=== PATIENT | female | born 1960 | race Caucasian/White ===

== ENCOUNTER 2017-07-30 13:22 | Emergency (ER) | payer OTHER ==
[2017-07-30] MEDS ORDERED: ONDANSETRON 4 MG/2 ML VIAL IVP ONE ×2 (16:34→18:32)
[2017-07-30] MEDS ORDERED: NS 1,000 ML IV ONE ×3 (16:34→20:40)
--- NOTE | 2017-07-30 16:34 | EDPHY ---
H & P Stated Complaint: Abd pain x 4 days;sent here from PCPs office for eval - Personal History Current Tetanus Diphtheria and Acellular Pertussis (TDAP): Yes - Medical/Surgical History Hx Asthma: No Hx Chronic Respiratory Disease: No Hx Diabetes: Yes Hx Cardiac Disease: No Hx Renal Disease: No Hx Cirrhosis: No Hx Alcoholism: No Hx HIV/AIDS: No Hx Splenectomy or Spleen Trauma: No Other PMH: stroke 2013, HTN, anxiety, cholecystectomy, hysterectomy, kidney upj obstruction, MS, r hamstring tear was w/c bound, r foot fx - Social History Smoking Status: Current every day smoker Time Seen by Provider: 07/30/17 16:16 HPI/ROS: CHIEF COMPLAINT: Abdominal pain x3 days HISTORY OF PRESENT ILLNESS: 57-year-old female history of multiple abdominal, renal surgeries, complaining of 3 days of progressive abdominal pain, saw her PCP yesterday recommend she go to the ER yesterday . She did not seek medical attention yesterday and came to the ER today noting continued abdominal pain which is progressive, nausea with no vomiting. She is able to pass a small amount of flatus. No diarrhea. No trauma. The abdominal pain is located primarily on the right side. She has history of cholecystectomy. Last oral intake was last night currently no appetite. PRIMARY CARE PROVIDER: Greg . Urology Dr. Sal Marquez REVIEW OF SYSTEMS: A ten point review of systems was performed and is negative with the exception of the items mentioned in the HPI PAST MEDICAL & SURGICAL HISTORY: Multiple renal and abdominal surgeries. Remote history of cholecystectomy. SOCIAL HISTORY: nonsmoker PHYSICAL EXAM (Prior to examination, patient consented to physical exam, hands were washed and my usual and customary physical exam procedures followed) 1) GENERAL: obese, alert and oriented. Appears uncomfortable . 2) HEAD: Normocephalic, atraumatic 3) HEENT: Pupils equal, round, reactive to light bilaterally. Sclera anicteric. Nasopharynx, oropharynx, clear, no lesions. Dry mucous membranes 4) NECK: Full range of motion, no meningeal signs. 5) LUNGS: Clear auscultation bilaterally, no wheezes, no rhonchi, no retractions. 6) HEART: Regular rate and rhythm, no murmur, no heave, no gallop. 7) ABDOMEN: No guarding, tender to palpation right lower quadrant with positive McBurney's point pain, negative Brennan's, negative Rovsing's, negative peritoneal sign, 8) MUSCULOSKELETAL: Moving all extremities, no focal areas of tenderness, no obvious trauma. No peripheral edema or discoloration. 9) BACK: No CVA tenderness, no midline vertebral tenderness, no fluctuance, no step-off, no obvious trauma, no visual or palpable abnormality. 10) SKIN: No rash, no petechiae. [11) Psychiatric: Patient is oriented X 3, there is no agitation. DIFFERENTIAL DIAGNOSIS: My differential diagnosis includes, but is not limited to, acute appendicitis, acute cholecystitis, bowel obstruction, acute pancreatitis, gastritis and urinary tract infection. The patient understands that this diagnosis is provisional and can never be 100% accurate. This is a partial list of diagnoses considered. These considerations are based on history , physical exam, past history and reassessment. (Humberto Trujillo) Constitutional: Initial Vital Signs Temperature (C) 36.8 C 07/30/17 13:25 Heart Rate 61 07/30/17 13:25 Respiratory Rate 18 07/30/17 13:25 Blood Pressure 115/77 07/30/17 13:25 O2 Sat (%) 94 07/30/17 13:25 O2 Delivery Mode Room Air Allergies/Adverse Reactions: iodine Allergy (Severe, Verified 07/30/17 13:38) Anaphylaxis ciprofloxacin [From Cipro] Allergy (Intermediate, Verified 07/30/17 13:38) Hives ciprofloxacin HCl [From Cipro] Allergy (Intermediate, Verified 07/30/17 13:38) Hives Sulfa (Sulfonamide Antibiotics) [Sulfa(Sulfonamide Antibiotics)] Allergy ( Intermediate, Verified 07/30/17 13:38) Hives Home Medications: Medication Instructions Recorded Acetaminophen [Tylenol ES 500 mg 1,000 mg PO TID PRN 09/14/13 (*)] Diazepam [Valium 5 MG (*)] 5 - 10 mg PO DAILY PRN 09/14/13 Albuterol [Proventil] 17 gm IH Q4 02/12/16 Aspirin [Aspirin 81mg (*)] 81 mg PO DAILY 02/12/16 Losartan Potassium [Cozaar 50 mg 50 mg PO DAILY 02/12/16 (*)] Medical Decision Making - Diagnostics Imaging: Discussed imaging studies w/ health education assistant Radiologist - Diagnostics Imaging Results: Imaging Impressions Abdomen/Pelvis CT 07/30/17 16:35 Impression: 1. No acute findings in the abdomen or pelvis. 2. Benign indeterminate right renal structures, unchanged since 2013. 3. Diverticulosis without evidence of diverticulitis. 4. Additional findings as above. Findings discussed with Kaushal Truijllo PA-C on July 30, 2017 at 1838 hours. Attention: This CT examination is specifically designed to evaluate patients who are clinically suspected of having acute obstructive uropathy. This examination does not use radiographic contrast, and as such, provides only a limited evaluation of the abdomen, pelvis and retroperitoneum. If there is further clinical suspicion for pathological conditions other than obstructive uropathy, a complete CT evaluation of the abdomen and pelvis utilizing intravenous and oral contrast should be considered. ED Course/Re-evaluation: Care of patient under supervision of [secondary] supervising physician Dr Gautam. 6:39 p.m.: CT report by radiologist shows normal appendix, normal CT abdomen pelvis Serial evaluations performed on patient. Most recent evaluation at 8:45 p.m. she sitting upright, smiling, laughing, interactive, states that her lower abdominal pain continues mildly however is currently controlled. Still awaiting urine sample. 9:40 p.m.: Re-evaluation, urinalysis is negative exception of trace bacteria. Abdomen remained soft she is eating. I do not think that hospitalization or further diagnostic studies are indicated. Doubt acute surgical abdominal pathology. She would like to be discharged. Recommend close follow-up with her primary care provider and given GI follow-up as well. (Humberto Trujillo) I did not see this patient while she was in the emergency department. However her care was discussed with the PA while the patient was in the department. I agree with treatment plan and management (Alejandro Gautam) - Data Points Laboratory Results: Laboratory Results 07/30/17 16:40 07/30/17 16:40 07/30/17 07/30/17 07/30/17 21:11 16:45 16:40 WBC RBC Hgb POC Hgb 15.6 gm/dL gm/dL (12.6-16.3) Hct POC Hct 46 % % (38-47) MCV MCH MCHC RDW Plt Count MPV Neut % (Auto) Lymph % (Auto) [place] % (Auto) Eos % (Auto) Baso % (Auto) Nucleat RBC Rel Count Absolute Neuts (auto) Absolute Lymphs (auto) Absolute Monos (auto) Absolute Eos (auto) Absolute Basos (auto) Absolute Nucleated RBC Immature Gran % Immature Gran # POC Sodium 143 mEq/L mEq/L (134-144) Sodium 141 mEq/L mEq/L (134-144) POC Potassium 3.9 mEq/L mEq/L (3.3-5.0) Potassium 4.4 mEq/L mEq/L (3.5-5.2) POC Chloride 107 mEq/L mEq/L (97-110) Chloride 106 mEq/L mEq/L (97-110) Carbon Dioxide 21 mEq/l L mEq/l (22-31) Anion Gap 14 mEq/L mEq/L (8-16) POC BUN 14 mg/dL mg/dL (7-23) BUN 13 mg/dL mg/dL (7-23) Creatinine 0.7 mg/dL mg/dL (0.6-1.0) POC Creatinine 0.7 mg/dL mg/dL (0.6-1.0) Estimated GFR > 60 Glucose 98 mg/dL mg/dL (70-100) POC Glucose 98 mg/dL mg/dL (70-100) Calcium 10.1 mg/dL mg/dL (8.5-10.4) Total Bilirubin 0.7 mg/dL mg/dL (0.1-1.4) Conjugated Bilirubin 0.4 mg/dL mg/dL (0.0-0.5) Unconjugated Bilirubin 0.3 mg/dL mg/dL (0.0-1.1) AST 28 IU/L IU/L (14-46) ALT 29 IU/L IU/L (9-52) Alkaline Phosphatase 112 IU/L IU/L (38-126) Total Protein 7.8 g/dL g/dL (6.3-8.2) Albumin 4.6 g/dL g/dL (3.5-5.0) Lipase 45 IU/L IU/L (23-300) Urine Color YELLOW Urine Appearance CLEAR Urine pH 5.0 (5.0-7.5) Ur Specific [place] 1.023 (1.002-1.030) Urine Protein NEGATIVE (NEGATIVE) Urine Ketones NEGATIVE (NEGATIVE) Urine Blood 1+ H (NEGATIVE) Urine Nitrate NEGATIVE (NEGATIVE) Urine Bilirubin NEGATIVE (NEGATIVE) Urine Urobilinogen NEGATIVE EU EU (0.2-1.0) Ur Leukocyte Esterase NEGATIVE (NEGATIVE) Urine RBC 5-10 /hpf H /hpf (0-3) Urine WBC 1-3 /hpf /hpf (0-3) Ur Epithelial Cells TRACE /lpf /lpf (NONE-1+) Urine Bacteria TRACE /hpf H /hpf (NONE SEEN) Urine Mucus TRACE /lpf /lpf (NONE-1+) Urine Glucose NEGATIVE (NEGATIVE) 07/30/17 16:40 WBC 9.08 10^3/uL 10^3/uL (3.80-9.50) RBC 5.15 10^6/uL 10^6/uL (4.18-5.33) Hgb 15.7 g/dL g/dL (12.6-16.3) POC Hgb Hct 45.1 % % (38.0-47.0) POC Hct MCV 87.6 fL fL (81.5-99.8) MCH 30.5 pg pg (27.9-34.1) MCHC 34.8 g/dL g/dL (32.4-36.7) RDW 13.3 % % (11.5-15.2) Plt Count 278 10^3/uL 10^3/uL (150-400) MPV 10.7 fL fL (8.7-11.7) Neut % (Auto) 45.9 % % (39.3-74.2) Lymph % (Auto) 46.1 % H % (15.0-45.0) [place] % (Auto) 5.6 % % (4.5-13.0) Eos % (Auto) 1.4 % % (0.6-7.6) Baso % (Auto) 0.8 % % (0.3-1.7) Nucleat RBC Rel Count 0.0 % % (0.0-0.2) Absolute Neuts (auto) 4.16 10^3/uL 10^3/uL (1.70-6.50) Absolute Lymphs (auto) 4.19 10^3/uL H 10^3/uL (1.00-3.00) Absolute Monos (auto) 0.51 10^3/uL 10^3/uL (0.30-0.80) Absolute Eos (auto) 0.13 10^3/uL 10^3/uL (0.03-0.40) Absolute Basos (auto) 0.07 10^3/uL 10^3/uL (0.02-0.10) Absolute Nucleated RBC 0.00 10^3/uL 10^3/uL (0-0.01) Immature Gran % 0.2 % % (0.0-1.1) Immature Gran # 0.02 10^3/uL 10^3/uL (0.00-0.10) POC Sodium Sodium POC Potassium Potassium POC Chloride Chloride Carbon Dioxide Anion Gap POC BUN BUN Creatinine POC Creatinine Estimated GFR Glucose POC Glucose Calcium Total Bilirubin Conjugated Bilirubin Unconjugated Bilirubin AST ALT Alkaline Phosphatase Total Protein Albumin Lipase Urine Color Urine Appearance Urine pH Ur Specific [place] Urine Protein Urine Ketones Urine Blood Urine Nitrate Urine Bilirubin Urine Urobilinogen Ur Leukocyte Esterase Urine RBC Urine WBC Ur Epithelial Cells Urine Bacteria Urine Mucus Urine Glucose Medications Given: Discontinued Medications Sodium Chloride (Ns) 1,000 mls @ 0 mls/hr IV ONCE ONE PRN Reason: Wide Open Stop: 07/30/17 16:35 Last Admin: 07/30/17 17:09 Dose: 1,000 mls Sodium Chloride (Ns) 1,000 mls @ 0 mls/hr IV ONCE ONE PRN Reason: Wide Open Stop: 07/30/17 20:41 Last Admin: 07/30/17 20:41 Dose: 1,000 mls Sodium Chloride (Ns) 1,000 mls @ 0 mls/hr IV ONCE ONE PRN Reason: Wide Open Stop: 07/30/17 20:41 Last Admin: 07/30/17 20:41 Dose: 1,000 mls Morphine Sulfate (Morphine) 4 mg IVP EDNOW ONE Stop: 07/30/17 16:35 Last Admin: 07/30/17 17:07 Dose: 4 mg Morphine Sulfate (Morphine) 4 mg IVP EDNOW ONE Stop: 07/30/17 18:33 Last Admin: 07/30/17 18:38 Dose: 4 mg Ondansetron HCl (Zofran) 4 mg IVP EDNOW ONE Stop: 07/30/17 16:35 Last Admin: 07/30/17 17:07 Dose: 4 mg Ondansetron HCl (Zofran) 4 mg IVP EDNOW ONE Stop: 07/30/17 18:33 Last Admin: 07/30/17 18:35 Dose: 4 mg Point of Care Test Results: 07/30/17 16:45 POC Sodium 143 POC Potassium 3.9 POC Chloride 107 POC BUN 14 POC Creatinine 0.7 POC Glucose 98 Departure - Departure Disposition: Home, Routine, Self-Care Clinical Impression: Abdominal pain Qualifiers: Abdominal location: right lower quadrant Qualified Code(s): R10.31 - Right lower quadrant pain Condition: Good Instructions: Acute Abdominal Pain (ED) Additional Instructions: Seek immediate medical attention if you develop new or worsening symptoms, if you develop fevers, chills, inability to tolerate oral intake or any other symptoms that concerns you. Referrals: Rolando Allen MD [Primary Care Provider] - 1 day without fail Armani Bush MD [[facility] [place]] - 2-3 days, call for appt.
[2017-07-30 16:57] LABS: % IMMATURE GRANULYOCYTES 0.2 % (0.0-1.1); ABSOLUTE IMMATURE GRANULOCYTES 0.02 10^3/uL (0.00-0.10); ADD DIFF? NO; ADD MORPH? NO; ADD SCAN? NO; ATYPICAL LYMPHOCYTE FLAG 10 (0-99); FRAGMENT RBC FLAG 0 (0-99); HEMATOCRIT 45.1 % (38.0-47.0); HEMOGLOBIN 15.7 g/dL (12.6-16.3); LEFT SHIFT FLG 0 (0-99); LIPEMIA HEMOLYSIS FLAG 90 (0-99); MEAN CELL HEMOGLOBIN 30.5 pg (27.9-34.1); MEAN CELL HEMOGLOBIN CONCENTR. 34.8 g/dL (32.4-36.7); MEAN CELL VOLUME 87.6 fL (81.5-99.8); MEAN PLATELET VOLUME 10.7 fL (8.7-11.7); PLATELET CLUMPS FLAG 10 (0-99); PLATELET COUNT 278 10^3/uL (150-400); RED BLOOD CELL COUNT 5.15 10^6/uL (4.18-5.33); RED CELL DISTRIBUTION WIDTH 13.3 % (11.5-15.2)
[2017-07-30 16:59] LABS: ALANINE AMINOTRANSFERASE 29 IU/L (9-52); ALBUMIN 4.6 g/dL (3.5-5.0); ALKALINE PHOSPHATASE 112 IU/L (38-126); ANION GAP 14 mEq/L (8-16); ASPARTATE AMINOTRANSFERASE 28 IU/L (14-46); BILIRUBIN,TOTAL 0.7 mg/dL (0.1-1.4); BILIRUBIN-CONJUGATED 0.4 mg/dL (0.0-0.5); BILIRUBIN-UNCONJUGATED 0.3 mg/dL (0.0-1.1); CALCIUM 10.1 mg/dL (8.5-10.4); CARBON DIOXIDE 21 mEq/l (22-31); CHLORIDE 106 mEq/L (97-110); CREATININE 0.7 mg/dL (0.6-1.0); GLOMERULAR FILTRATION RATE > 60; GLUCOSE 98 mg/dL (70-100); POTASSIUM 4.4 mEq/L (3.5-5.2); SODIUM 141 mEq/L (134-144); TOTAL PROTEIN 7.8 g/dL (6.3-8.2)
[2017-07-30] MEDS ORDERED: IOPAMIDOL (ISOVUE-300) 100 ML BTL ONE (17:33)
[2017-07-30 19:30] VITALS: RESP 16
[2017-07-30 21:28] LABS: COLOR YELLOW; LEUKOCYTE ESTERASE,URINE NEGATIVE (NEGATIVE); NITRITE,URINE NEGATIVE (NEGATIVE)
[2017-07-30 21:33] LABS: BACTERIA TRACE /hpf (NONE SEEN); MUCUS TRACE /lpf (NONE-1+)
[2017-07-30 22:04] VITALS: BP 119/62; PULSE 57; TEMP 97.7; O2SAT 90
== END 2017-07-30 22:02 | disposition home or self-care (01) ==
DX: R10.31 Right lower quadrant pain (principal); F17.200 Nicotine dependence, unspecified, uncomplicated; I10 Essential (primary) hypertension; E11.9 Type 2 diabetes mellitus without complications; Z79.82 Long term (current) use of aspirin; Z90.49 Acquired absence of other specified parts of digestive tract; Z90.710 Acquired absence of both cervix and uterus
CPT/HCPCS: 82947-QW; 96374; J2405; Q9967

== ENCOUNTER 2018-04-20 09:47 | Observation (INO) | payer OTHER ==
--- NOTE | 2018-04-20 10:00 | EDPHY ---
H & P Stated Complaint: diabetic /prob regulating blood sugar las month/changing dosages r forearm Time Seen by Provider: 04/20/18 09:58 - Personal History Current Tetanus Diphtheria and Acellular Pertussis (TDAP): Yes - Medical/Surgical History Hx Asthma: No Hx Chronic Respiratory Disease: No Hx Diabetes: Yes Hx Cardiac Disease: No Hx Renal Disease: No Hx Cirrhosis: No Hx Alcoholism: No Hx HIV/AIDS: No Hx Splenectomy or Spleen Trauma: No Other PMH: stroke 2013, HTN, anxiety, cholecystectomy, hysterectomy, kidney upj obstruction, MS, r hamstring tear was w/c bound, r foot fx - Social History Smoking Status: Former smoker Constitutional: Initial Vital Signs Temperature (C) 36.5 C 04/20/18 09:52 Heart Rate 63 04/20/18 09:52 Respiratory Rate 18 04/20/18 09:52 Blood Pressure 140/75 H 04/20/18 09:52 O2 Sat (%) 92 04/20/18 09:52 O2 Delivery Mode Room Air Allergies/Adverse Reactions: iodine Allergy (Severe, Verified 04/20/18 09:51) Anaphylaxis ciprofloxacin [From Cipro] Allergy (Intermediate, Verified 04/20/18 09:51) Hives ciprofloxacin HCl [From Cipro] Allergy (Intermediate, Verified 04/20/18 09:51) Hives Sulfa (Sulfonamide Antibiotics) [Sulfa(Sulfonamide Antibiotics)] Allergy ( Intermediate, Verified 04/20/18 09:51) Hives Home Medications: Medication Instructions Recorded Acetaminophen [Tylenol ES 500 mg 1,000 mg PO TID PRN 09/14/13 (*)] Diazepam [Valium 5 MG (*)] 5 - 10 mg PO DAILY PRN 09/14/13 Aspirin [Aspirin 81mg (*)] 81 mg PO DAILY 02/12/16 Losartan Potassium [Cozaar 50 mg 50 mg PO DAILY 02/12/16 (*)] Albuterol [Proventil Inhaler HFA 1 - 2 puffs IH DAILY PRN 04/20/18 (*)] Atorvastatin Calcium [Lipitor 20 20 mg PO DAILY 04/20/18 mg (*)] Humalog 04/20/18 Lantus 04/20/18 Metformin HCl 04/20/18 Medical Decision Making - Diagnostics Imaging: Discussed imaging studies w/ inbound call center representative Radiologist, I viewed and interpreted images myself ED Course/Re-evaluation: CHIEF COMPLAINT: Right hand numbness HISTORY OF PRESENT ILLNESS: The patient is a 58 y/o female with a history of a stroke and diabetes complaining of right hand numbness and a high blood sugar. A couple of weeks ago she started to have muscle cramps in the back of her legs and a high blood sugar of 630; her BGL was normal prior to this. Her PCP started the patient on Metformin, which causes gastrointestinal problems. However, her BGL was still ranging between 300-600. Last Friday, 3 days ago, she had a blood sugar in the 600's again so she changed over to long and fast acting insulin. Today she woke up at 07:20, 3 hours ago, and had a BGL of 440 associated with right-hand numbness. This numbness does not feel like pins and needles. She ate breakfast and took 25 units of Lantus. At 09:30, 40 minutes ago, her BGL was 532. Due to the high blood sugar and numbness she decided to present to the emergency department. She is currently not feeling well and is feeling more stressed and anxious.Denies urinary symptoms, sore throat, cough or ear ache, headache, shortness of breath, abdominal pain. REVIEW OF SYSTEMS: A 10 point review of systems was performed and is negative with the exception of the elements mentioned in the history of present illness. PHYSICAL EXAM: HR, BP, O2 Sat, RR. Temp noted General Appearance: Obese, alert, well hydrated, appropriate, and non-toxic appearing. Head: Atraumatic without scalp tenderness or obvious injury Eyes: Pupils equal, round, reactive to light and accommodation, EOMI, no trauma , no injection. Ears: Clear bilaterally, no perforation, normal landmarks Nose: Atraumatic, no rhinorrhea, clear. Throat: There is no erythema or exudates, no lesions, normal tonsils, mucus membranes moist. Neck: Supple, nontender, no lymphadenopathy. Respiratory: No retractions, no distress, no wheezes, and no accessory muscle use. Lungs are clear to auscultation bilaterally. Cardiovascular: Regular rate and rhythm, no murmurs, rubs, or gallops. Bilateral carotid, radial, dorsalis pedis, and posterior tibial pulses intact. Good capillary refill all extremities. Gastrointestinal: Abdomen is soft, nontender, non-distended, no masses, no rebound, no guarding, no peritoneal signs. Musculoskeletal: Normal active ROM of all extremities, atraumatic. Neurological: Alert, appropriate, and interactive. The patient has normal DTRs and non-focal cranial nerves, motor, sensory, and cerebellar exam. Skin: No rashes, good turgor, no nodules on palpation. Past medical history: Stroke (2012), diabetes (since 2016), hypertension, anxiety, , kidney upj obstruction, MS, right hamstring tear (was wheelchair bound), right foot fracture Past surgical history: Cholecystectomy, hysterectomy Family history: Denies Social history: Lives in [place], at bedside, employed DIAGNOSTICS/PROCEDURES/CRITICAL CARE TIME: Brain MRI: No acute findings DIFFERENTIAL DIAGNOSIS: The differential diagnosis for the patient's neurologic deficits included but was not limited to diabetic ketoacidosis, hyperglycemia, hyperosmolarity, peripheral causes, central causes including CVA, TIA, electrolyte abnormalities and dehydration, cardiogenic causes, atypical causes like migraine syndrome. MEDICAL DECISION MAKING: The patient is a 58 y/o female with a history of a stroke and diabetes presenting with right hand numbness and a high blood sugar ranging between 300- 600. Her physical exam is normal. Labs and Brain MRI ordered; 2L IV NS given. 1050: I reviewed patient's labs which reveal hyperglycemia and hyperosmolarity; she is not in DKA. 1120: Consulted with hospitalist service, Dr. Miguel accepts admission of this patient. 1136: Patient is feeling anxious for MRI, 0.5mg IV Ativan administered. 1221: Patient is still anxious, additional 1 mg IV Ativan administered. 1242: Repeat glucose ordered; patient is currently in MRI. 1309: Patient's repeat blood glucose level has decreased to 253 1310: Reassessed patient and discussed laboratory and imaging studies. She is feeling better and is comfortable with plan for admission. 1338: I spoke with Dr. Ramires, radiologist, who reports there are no acute findings on patient's brain MRI. Patient has already been transferred to the floor. - Data Points Laboratory Results: Laboratory Results 04/20/18 10:20 04/20/18 10:20 04/20/18 04/20/18 04/20/18 13:08 13:00 10:28 WBC RBC Hgb POC Hgb 12.9 gm/dL gm/dL 15.3 gm/dL gm/dL (12.6-16.3) (12.6-16.3) Hct POC Hct 38 % % 45 % % (38-47) (38-47) MCV MCH MCHC RDW Plt Count MPV Neut % (Auto) Lymph % (Auto) [place] % (Auto) Eos % (Auto) Baso % (Auto) Nucleat RBC Rel Count Absolute Neuts (auto) Absolute Lymphs (auto) Absolute Monos (auto) Absolute Eos (auto) Absolute Basos (auto) Absolute Nucleated RBC Immature Gran % Immature Gran # Puncture Site VBG pH VBG HCO3 VBG Total CO2 VBG O2 Saturation VBG Base Excess Mixed VBG pCO2 Mixed VBG pO2 POC Sodium 143 mEq/L mEq/L 139 mEq/L mEq/L (135-145) (135-145) Sodium POC Potassium 3.7 mEq/L mEq/L 4.1 mEq/L mEq/L (3.3-5.0) (3.3-5.0) Potassium POC Chloride 107 mEq/L mEq/L 103 mEq/L mEq/L (97-110) (97-110) Chloride Carbon Dioxide Anion Gap POC BUN 12 mg/dL mg/dL 16 mg/dL mg/dL (7-23) (7-23) BUN Creatinine POC Creatinine 0.5 mg/dL L mg/dL 0.6 mg/dL mg/dL (0.6-1.0) (0.6-1.0) Estimated GFR Glucose POC Glucose 253 mg/dL H mg/dL 426 mg/dL H mg/dL (70-100) (70-100) Serum Osmolality Calcium Beta-Hydroxybutyrate Urine Color YELLOW Urine Appearance CLEAR Urine pH 5.0 (5.0-7.5) Ur Specific [place] 1.030 (1.002-1.030) Urine Protein NEGATIVE (NEGATIVE) Urine Ketones NEGATIVE (NEGATIVE) Urine Blood NEGATIVE (NEGATIVE) Urine Nitrate NEGATIVE (NEGATIVE) Urine Bilirubin NEGATIVE (NEGATIVE) Urine Urobilinogen NEGATIVE EU EU (0.2-1.0) Ur Leukocyte Esterase NEGATIVE (NEGATIVE) Urine RBC NONE SEEN /hpf /hpf (0-3) Urine WBC 1-3 /hpf /hpf (0-3) Ur Epithelial Cells TRACE /lpf /lpf (NONE-1+) Urine Bacteria TRACE /hpf H /hpf (NONE SEEN) Urine Osmolality 819.5 mosmo/kg mosmo/kg (300-900) Urine Glucose 3+ H (NEGATIVE) 04/20/18 04/20/18 04/20/18 10:20 10:20 10:20 WBC 7.89 10^3/uL 10^3/uL (3.80-9.50) RBC 5.04 10^6/uL 10^6/uL (4.18-5.33) Hgb 14.7 g/dL g/dL (12.6-16.3) POC Hgb Hct 43.5 % % (38.0-47.0) POC Hct MCV 86.3 fL fL (81.5-99.8) MCH 29.2 pg pg (27.9-34.1) MCHC 33.8 g/dL g/dL (32.4-36.7) RDW 12.7 % % (11.5-15.2) Plt Count 253 10^3/uL 10^3/uL (150-400) MPV 11.0 fL fL (8.7-11.7) Neut % (Auto) 57.4 % % (39.3-74.2) Lymph % (Auto) 35.1 % % (15.0-45.0) [place] % (Auto) 5.6 % % (4.5-13.0) Eos % (Auto) 1.0 % % (0.6-7.6) Baso % (Auto) 0.6 % % (0.3-1.7) Nucleat RBC Rel Count 0.0 % % (0.0-0.2) Absolute Neuts (auto) 4.53 10^3/uL 10^3/uL (1.70-6.50) Absolute Lymphs (auto) 2.77 10^3/uL 10^3/uL (1.00-3.00) Absolute Monos (auto) 0.44 10^3/uL 10^3/uL (0.30-0.80) Absolute Eos (auto) 0.08 10^3/uL 10^3/uL (0.03-0.40) Absolute Basos (auto) 0.05 10^3/uL 10^3/uL (0.02-0.10) Absolute Nucleated RBC 0.00 10^3/uL 10^3/uL (0-0.01) Immature Gran % 0.3 % % (0.0-1.1) Immature Gran # 0.02 10^3/uL 10^3/uL (0.00-0.10) Puncture Site VENOUS VBG pH 7.37 (7.31-7.42) VBG HCO3 21 mEQ/L L mEQ/L (22-26) VBG Total CO2 23 mEq/L mEq/L (21-27) VBG O2 Saturation 93 % H % (65-75) VBG Base Excess -2.9 mEq/L L mEq/L (-2.5-2.5) Mixed VBG pCO2 38 mmHg L mmHg (40-44) Mixed VBG pO2 70 mmHG H mmHG (35-40) POC Sodium Sodium 139 mEq/L mEq/L (135-145) POC Potassium Potassium 4.3 mEq/L mEq/L (3.3-5.0) POC Chloride Chloride 103 mEq/L mEq/L (97-110) Carbon Dioxide 21 mEq/l L mEq/l (22-31) Anion Gap 15 mEq/L mEq/L (8-16) POC BUN BUN 16 mg/dL mg/dL (7-23) Creatinine 0.6 mg/dL mg/dL (0.6-1.0) POC Creatinine Estimated GFR > 60 Glucose 408 mg/dL H mg/dL (70-100) POC Glucose Serum Osmolality 310 mosmo/kg H mosmo/kg (280-297) Calcium 9.7 mg/dL mg/dL (8.5-10.4) Beta-Hydroxybutyrate 0.10 mmol/L mmol/L (0.02-0.27) Urine Color Urine Appearance Urine pH Ur Specific [place] Urine Protein Urine Ketones Urine Blood Urine Nitrate Urine Bilirubin Urine Urobilinogen Ur Leukocyte Esterase Urine RBC Urine WBC Ur Epithelial Cells Urine Bacteria Urine Osmolality Urine Glucose Medications Given: Discontinued Medications Sodium Chloride (Ns) 1,000 mls @ 0 mls/hr IV EDNOW ONE; Wide Open PRN Reason: Protocol Stop: 04/20/18 10:18 Last Admin: 04/20/18 10:23 Dose: 1,000 mls Sodium Chloride (Ns) 1,000 mls @ 0 mls/hr IV EDNOW ONE; Wide Open PRN Reason: Protocol Stop: 04/20/18 10:18 Last Admin: 04/20/18 11:25 Dose: 1,000 mls Lorazepam (Ativan Injection) 0.5 mg IVP ONCE ONE Stop: 04/20/18 11:36 Last Admin: 04/20/18 11:38 Dose: 0.5 mg Lorazepam (Ativan Injection) 1 mg IVP ONCE ONE Stop: 04/20/18 12:22 Last Admin: 04/20/18 13:33 Dose: 1 mg Point of Care Test Results: Chemistry 04/20/18 04/20/18 13:08 10:28 POC Sodium 143 mEq/L mEq/L 139 mEq/L mEq/L (135-145) (135-145) POC Potassium 3.7 mEq/L mEq/L 4.1 mEq/L mEq/L (3.3-5.0) (3.3-5.0) POC Chloride 107 mEq/L mEq/L 103 mEq/L mEq/L (97-110) (97-110) POC BUN 12 mg/dL mg/dL 16 mg/dL mg/dL (7-23) (7-23) POC Creatinine 0.5 mg/dL L mg/dL 0.6 mg/dL mg/dL (0.6-1.0) (0.6-1.0) POC Glucose 253 mg/dL H mg/dL 426 mg/dL H mg/dL (70-100) (70-100) ISTAT H&H 04/20/18 04/20/18 13:08 10:28 POC Hgb 12.9 gm/dL gm/dL 15.3 gm/dL gm/dL (12.6-16.3) (12.6-16.3) POC Hct 38 % % 45 % % (38-47) (38-47) Departure - Departure Disposition: [facility] Acute Clinical Impression: Hyperglycemia, Diabetes mellitus with hyperosmolarity, hyperglycemic hyperosmolar dehydration Condition: Fair Referrals: Rolando Allen MD [Primary Care Provider] - As per Instructions Report Scribed for: Crispin Noble Report Scribed by: Renee Schaefer Date of Report: 04/20/18 Time of Report: 10:04
[2018-04-20] MEDS ORDERED: NS 1,000 ML IV ONE ×2 (10:17)
[2018-04-20 10:31] LABS: PLATELET COUNT 253 10^3/uL (150-400)
[2018-04-20] MEDS ORDERED: LORazepam 2 MG/ML INJ IVP ONE ×2 (11:35→12:21)
[2018-04-20] MEDS ORDERED: LORazepam 2 MG/ML INJ ONE (11:36)
[2018-04-20] MEDS ORDERED: GADOBUTROL 10 ML VIAL IVP ONE (12:03)
[2018-04-20] MEDS ORDERED: ALBUTEROL 60 PUFFS/8 GM MDI IH PRN (12:56)
[2018-04-20] MEDS ORDERED: DIAZEPAM 5 MG TAB PO PRN (12:56)
[2018-04-20] MEDS ORDERED: ONDANSETRON DISINTEGRATING 4 MG TAB PO PRN (12:57)
[2018-04-20] MEDS ORDERED: ONDANSETRON 4 MG/2 ML VIAL IVP PRN (12:57)
[2018-04-20] MEDS ORDERED: ACETAMINOPHEN 325 MG TAB PO PRN (12:57)
[2018-04-20] MEDS ORDERED: D50W 25 GM/50 ML SYR IVP PRN (12:59)
--- NOTE | 2018-04-20 13:36 | PDGENHP ---
History and Physical - Chief Complaint hyperglycemia, right hand numbness - History of Present Illness 58 yo female with h/o hypertension, DM and prior TIA presented to ED this morning with hyperglycemia and right hand numbness. She reports over the past 2 weeks she has had difficulty managing her blood sugars. She was diagnosed with diabetes in 2017 and was initially started on Metformin. However, she has had GI distress with Metformin. Her PCP then started her on Lantus 10 units at bedtime. Recently, her Lantus was increased to 20 units, then 25 units and short acting Humalog was added. Her recent a1c in 03/2018 was >10. She notes a lot of increased stress and has not been adherent to a diabetic diet. With respect to her right hand numbness, she noticed this upon awakening this morning. She denies associated weakness, headache, vision changes or difficulty with speech. Her numbness has persisted throughout the morning, but she thinks it is a little better. In the ED, a brain MRI was negative for acute stroke. She is admitted for further evaluation and management of hyperglycemia. History Information - Allergies/Home Medication List Allergies/Adverse Reactions: iodine Allergy (Severe, Verified 04/20/18 09:51) Anaphylaxis ciprofloxacin [From Cipro] Allergy (Intermediate, Verified 04/20/18 09:51) Hives ciprofloxacin HCl [From Cipro] Allergy (Intermediate, Verified 04/20/18 09:51) Hives Sulfa (Sulfonamide Antibiotics) [Sulfa(Sulfonamide Antibiotics)] Allergy ( Intermediate, Verified 04/20/18 09:51) Hives Home Medications: Acetaminophen [Tylenol ES 500 mg (*)] 1,000 mg PO TID PRN 09/14/13 [Last Taken 04/20/18] Diazepam [Valium 5 MG (*)] 10 mg PO DAILY PRN 09/14/13 [Last Taken 02/09/16] Aspirin [Aspirin 81mg (*)] 81 mg PO DAILY 02/12/16 [Last Taken 04/20/18] Losartan Potassium [Cozaar 50 mg (*)] 50 mg PO DAILY 02/12/16 [Last Taken ] Albuterol [Proventil Inhaler HFA (*)] 1 - 2 puffs IH DAILY PRN 04/20/18 [Last Taken Unknown] Atorvastatin Calcium [Lipitor 20 mg (*)] 20 mg PO DAILY 04/20/18 [Last Taken Unknown] Insulin Glargine,Hum.rec.anlog [Lantus Solostar] 20 - 25 unit SQ DAILY 04/20/18 [Last Taken 04/20/18 20 unitS] Insulin Lispro [Humalog] 10 unit SQ TIDMEAL 04/20/18 [Last Taken 04/19/18 12:00] metFORMIN HCL [Glucophage 500 mg (*)] 500 mg PO HS 04/20/18 [Last Taken 04/19/18 ] I have personally reviewed and updated: family history, medical history, social history, surgical history - Past Medical History CVA, diabetes type 2, hypertension - Surgical History Reports: cholecystectomy, hysterectomy Additional surgical history: UPJ obstruction - Family History Positive for: non-pertinent - Social History Smoking Status: Former smoker Drug Use: None Additional social history: Lives independently Review of Systems Review of Systems: ROS: 10pt was reviewed & negative except for what was stated in HPI & below Physical Exam Physical Exam: Temp Pulse Resp BP Pulse Ox 36.5 C 58 L 18 149/83 H 93 04/20/18 09:52 04/20/18 13:33 04/20/18 13:33 04/20/18 13:33 04/20/18 13:33 Constitutional: no apparent distress Eyes: PERRL Ears, Nose, Mouth, Throat: moist mucous membranes Cardiovascular: regular rate and rhythym Respiratory: no respiratory distress, clear to auscultation Gastrointestinal: normoactive bowel sounds, soft, non-tender abdomen Skin: warm Musculoskeletal: full muscle strength, other (decreased sensation right distal extremity, 2+ radial pulse) Neurologic: AAOx3 Psychiatric: interacting appropriately Lab Data & Imaging Review 04/20/18 10:20 04/20/18 10:20 WBC 7.89 10^3/uL (3.80-9.50) 04/20/18 10:20 RBC 5.04 10^6/uL (4.18-5.33) 04/20/18 10:20 Hgb 14.7 g/dL (12.6-16.3) 04/20/18 10:20 POC Hgb 12.9 gm/dL (12.6-16.3) 04/20/18 13:08 Hct 43.5 % (38.0-47.0) 04/20/18 10:20 POC Hct 38 % (38-47) 04/20/18 13:08 MCV 86.3 fL (81.5-99.8) 04/20/18 10:20 MCH 29.2 pg (27.9-34.1) 04/20/18 10:20 MCHC 33.8 g/dL (32.4-36.7) 04/20/18 10:20 RDW 12.7 % (11.5-15.2) 04/20/18 10:20 Plt Count 253 10^3/uL (150-400) 04/20/18 10:20 MPV 11.0 fL (8.7-11.7) 04/20/18 10:20 Neut % (Auto) 57.4 % (39.3-74.2) 04/20/18 10:20 Lymph % (Auto) 35.1 % (15.0-45.0) 04/20/18 10:20 [place] % (Auto) 5.6 % (4.5-13.0) 04/20/18 10:20 Eos % (Auto) 1.0 % (0.6-7.6) 04/20/18 10:20 Baso % (Auto) 0.6 % (0.3-1.7) 04/20/18 10:20 Nucleat RBC Rel Count 0.0 % (0.0-0.2) 04/20/18 10:20 Absolute Neuts (auto) 4.53 10^3/uL (1.70-6.50) 04/20/18 10:20 Absolute Lymphs (auto) 2.77 10^3/uL (1.00-3.00) 04/20/18 10:20 Absolute Monos (auto) 0.44 10^3/uL (0.30-0.80) 04/20/18 10:20 Absolute Eos (auto) 0.08 10^3/uL (0.03-0.40) 04/20/18 10:20 Absolute Basos (auto) 0.05 10^3/uL (0.02-0.10) 04/20/18 10:20 Absolute Nucleated RBC 0.00 10^3/uL (0-0.01) 04/20/18 10:20 Immature Gran % 0.3 % (0.0-1.1) 04/20/18 10:20 Immature Gran # 0.02 10^3/uL (0.00-0.10) 04/20/18 10:20 Puncture Site VENOUS 04/20/18 10:20 VBG pH 7.37 (7.31-7.42) 04/20/18 10:20 VBG HCO3 21 mEQ/L (22-26) L 04/20/18 10:20 VBG Total CO2 23 mEq/L (21-27) 04/20/18 10:20 VBG O2 Saturation 93 % (65-75) H 04/20/18 10:20 VBG Base Excess -2.9 mEq/L (-2.5-2.5) L 04/20/18 10:20 Mixed VBG pCO2 38 mmHg (40-44) L 04/20/18 10:20 Mixed VBG pO2 70 mmHG (35-40) H 04/20/18 10:20 POC Sodium 143 mEq/L (135-145) 04/20/18 13:08 Sodium 139 mEq/L (135-145) 04/20/18 10:20 POC Potassium 3.7 mEq/L (3.3-5.0) 04/20/18 13:08 Potassium 4.3 mEq/L (3.3-5.0) 04/20/18 10:20 POC Chloride 107 mEq/L (97-110) 04/20/18 13:08 Chloride 103 mEq/L (97-110) 04/20/18 10:20 Carbon Dioxide 21 mEq/l (22-31) L 04/20/18 10:20 Anion Gap 15 mEq/L (8-16) 04/20/18 10:20 POC BUN 12 mg/dL (7-23) 04/20/18 13:08 BUN 16 mg/dL (7-23) 04/20/18 10:20 Creatinine 0.6 mg/dL (0.6-1.0) 04/20/18 10:20 POC Creatinine 0.5 mg/dL (0.6-1.0) L 04/20/18 13:08 Estimated GFR > 60 04/20/18 10:20 Glucose 408 mg/dL (70-100) H 04/20/18 10:20 POC Glucose 253 mg/dL (70-100) H 04/20/18 13:08 Serum Osmolality 310 mosmo/kg (280-297) H 04/20/18 10:20 Calcium 9.7 mg/dL (8.5-10.4) 04/20/18 10:20 Beta-Hydroxybutyrate 0.10 mmol/L (0.02-0.27) 04/20/18 10:20 Urine Color YELLOW 04/20/18 13:00 Urine Appearance CLEAR 04/20/18 13:00 Urine pH 5.0 (5.0-7.5) 04/20/18 13:00 Ur Specific [place] 1.030 (1.002-1.030) 04/20/18 13:00 Urine Protein NEGATIVE (NEGATIVE) 04/20/18 13:00 Urine Ketones NEGATIVE (NEGATIVE) 04/20/18 13:00 Urine Blood NEGATIVE (NEGATIVE) 04/20/18 13:00 Urine Nitrate NEGATIVE (NEGATIVE) 04/20/18 13:00 Urine Bilirubin NEGATIVE (NEGATIVE) 04/20/18 13:00 Urine Urobilinogen NEGATIVE EU (0.2-1.0) 04/20/18 13:00 Ur Leukocyte Esterase NEGATIVE (NEGATIVE) 04/20/18 13:00 Urine RBC NONE SEEN /hpf (0-3) 04/20/18 13:00 Urine WBC 1-3 /hpf (0-3) 04/20/18 13:00 Ur Epithelial Cells TRACE /lpf (NONE-1+) 04/20/18 13:00 Urine Bacteria TRACE /hpf (NONE SEEN) H 04/20/18 13:00 Urine Osmolality 819.5 mosmo/kg (300-900) 04/20/18 13:00 Urine Glucose 3+ (NEGATIVE) H 04/20/18 13:00 Assessment & Plan Assessment: DM with hyperglycemia - recent a1c 10.4, poor control. No associated acidosis or coma. S/P 2 L IVFs in ED. -increase Lantus to 28 u hs -cont SSI humalog ACHS -hold MTF x72 hrs as she received contrast Right hand numbness - given h/o CVA, TIA workup ensued. MRI/MRA neg. -echo pending -monitor on telemetry -cont ASA, statin -check lipid status -neurology consult in am, ?peripheral nerve impingement- may need outpt EMG Hypertension - adequate control -cont ARB Hyperlipidemia - cont statin Full code Dispo - obs
[2018-04-20] MEDS: INSULIN LISPRO 100 UNIT/ML SC SCH ×3 (14:48→21:49)
--- NOTE | 2018-04-20 15:29 | ECHO ---
[email or web address] [address] [address] Main: [phone] Fax: Transthoracic Echocardiogram Name: RADHA ALVARADO MR#: [id number] Study Date: 04/20/2018 Study Time: 01:59 PM Date of : 1960 Age: 58 year(s) Height: 152.4 cm (60 in.) Weight: 89.81 kg (198 lb.) BSA: 1.86 m2 Gender: Female Examination: Echo Indication: Question TIA, Hyperglycemic Image Quality: Good Contrast: Requested by: Georgie Miguel BP: 134 mmHg/87 mmHg Heart Rate: Rhythm: Indication: Question TIA, Hyperglycemic Procedure Staff Ring Spinner: Catrina Saenz RDCS Reading Physician: Marco Antonio Oscar MD Requesting Provider: Conclusions: Normal size left ventricle. Normal global systolic LV function. The ejection fraction is estimated to be 65-70 %. No regional wall motion abnormality. The left atrium is normal in size. Mild mitral valve regurgitation is present. Trivial tricuspid valve regurgitation. The pulmonary artery pressure is normal. No obvious cardiac source for embolism. Consider transesophageal echo if there is a high clinical index of suspicion Measurements: Chambers Valvular Assessment AV/MV Valvular Assessment TV/PV Normal Normal Normal Name Value Range Name Value Range Name Value Range Ao Sirena (MM): 3.8 cm (2.2 cm-3.7 AV meanP mmHg ( - ) TR Vmax: 2.26 mm/s ( - ) cm) MV E Vmax: 0.71 m/s ( - ) TR PGmax: 20 mmHg ( - ) IVSd (2D): 1.1 cm (0.6 cm-1.1 MV A Vmax: 0.88 m/s ( - ) syst. PAP: 25 mmHg ( - ) cm) MV E/A: 0.81 ( - ) LVDd (2D): 4.3 cm (3.9 cm-5.3 cm) LVDs (2D): 2.7 cm (2.1 cm-4 cm) LVPWd (2D): 0.9 cm ( - ) LVEF (MOD4): 71 % (>=55 %) EF Range: 65-70 % Continued Measurements: Chambers Valvular Assessment AV/MV Valvular Assessment TV/PV Patient: RADAH ALVARADO Study Date: 04/20/2018 Page 1 of 2 01:59 PM Name Value Name Value Name Value LADs: 4.5 cm MV E' Septal: 0.07 m/s CVP (est.): 5 mmHg LADs Lon.1 cm MV E/E' Septal: 10.10 LA Area: 18.0 cm2 MV E/E' Lateral: 10.60 Additional Vessels Name Value Ao Ascendin.9 cm Findings: Left Ventricle: Normal size left ventricle. No LV hypertrophy. Normal global systolic LV function. The ejection fraction is estimated to be 65-70 %. No regional wall motion abnormality. Right Ventricle: Normal size right ventricle. Left Atrium: The left atrium is normal in size. Normal appearing atrial septum. Right Atrium: The right atrium is normal in size. Mitral Valve: The mitral valve is normal in appearance and function. Mild mitral valve regurgitation is present. Aortic Valve: The aortic valve is normal in appearance and function. The aortic valve is tri-leaflet. There is no aortic valve regurgitation. Tricuspid Valve: The tricuspid valve is normal in appearance and function. Trivial tricuspid valve regurgitation. The pulmonary artery pressure is normal. Pulmonic Valve: The pulmonic valve is normal in appearance and function. Trivial pulmonic valve regurgitation. Aorta: The aorta is normal. Pericardium: No pericardial effusion. There is pericardial fat. (No Signature Object) Patient: RADHA ALVARADO Study Date: 04/20/2018 Page 2 of 2 01:59 PM [id number]
--- NOTE | 2018-04-20 16:09 | ASMTCMCOM ---
CM Note CM Note Notes: Chart reviewed. 58 year old female admitted via ED for complaints of right hand numbness and hyperglycemia. History significant for prior CVA as well as diabetes. No significant results on MRI. Plan TBD at this time. Plan: TBD Date Signed: 04/20/2018 04:08 PM Electronically Signed By:Kya Cornelius RN
[2018-04-20] MEDS ORDERED: INSULIN GLARGINE HUM REC ANLOG 30 UNIT SQ SCH (21:00)
[2018-04-20] MEDS ORDERED: INSULIN GLARGINE 100 UNITS/ML SYRINGE SC SCH (21:00)
[2018-04-21] MEDS: INSULIN LISPRO 100 UNIT/ML SC SCH ×2 (08:03→12:32)
[2018-04-21] MEDS ORDERED: ATORVASTATIN CALCIUM 20 MG TAB PO SCH (09:00)
[2018-04-21] MEDS ORDERED: LOSARTAN POTASSIUM 50 MG TAB PO SCH (09:00)
[2018-04-21] MEDS ORDERED: ASPIRIN 81 MG CHEWABLE TAB PO SCH (09:00)
[2018-04-21 12:20] VITALS: BP 133/67
--- NOTE | 2018-04-21 13:43 | ASMTLACE ---
BILLY Length of stay for Answers: 1 day current admission Comorbidities - select Answers: Cerebrovascular disease all that apply (CVA, TIA, aneurysms, vasc ular dementia) Diabetes (uncontrolled or controlled) Score: 3 Date Signed: 04/21/2018 01:42 PM Electronically Signed By:Kya Cornelius RN
--- NOTE | 2018-04-21 14:12 | ASMTCMCOM ---
CM Note CM Note Notes: Patient has been medically cleared for discharge to home no needs identified. CM available should needs arise. Plan: Home independently. Date Signed: 04/21/2018 02:11 PM Electronically Signed By:Kya Cornelius RN
--- NOTE | 2018-04-21 15:18 | GCON ---
[f rep st] CONSULTATION NEUROLOGY CONSULTATION REFERRING PHYSICIAN: Georgie Miguel MD CHIEF COMPLAINT: Right hand numbness, resolved. HISTORY OF PRESENT ILLNESS: The patient is a very pleasant 58-year-old lady who was diagnosed with diabetes 1 year ago, approximately. In the last month, she has had severe loss of control of her blood sugars with blood glucose ranging in the 600s. She is symptomatic with this. 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 The patient woke up yesterday morning, her body position was not clear, with numbness in her right hand, mainly in the median nerve distribution. It lasted around 3 or 4 hours in an intermittent fashion and spontaneously resolved. There were no symptoms of any type in her right face or right leg. No language symptoms whatsoever. It was completely isolated to the right distal upper extremity in the median nerve distribution. She had an MRI brain after being symptomatic for 4 hours, which showed no diffusion-weighted abnormalities. MRA of the head and neck was unremarkable. Echocardiogram was done and did not show any obvious intracardiac thrombus. Her anti-platelet medication was changed from 81 to 325 mg daily of aspirin. Her symptoms spontaneously resolved and she is back to baseline. PAST MEDICAL HISTORY, SURGICAL HISTORY, HOME MEDICATIONS, SOCIAL HISTORY: See Dr. Miguel's H and P. PHYSICAL EXAM: VITAL SIGNS: Blood pressure 117/72, heart rate 63, temperature 36.6. GENERAL: In no acute distress. Very pleasant. NEUROLOGIC: Cranial nerve exam normal 2-7. Motor exam: No focal weakness. Sensory exam: Normal to light touch in all 4 extremities. She did have a positive Tinel and Phalen sign on the right, consistent with some mild carpal tunnel on the right. Coordination normal. Gait normal. IMPRESSION AND PLAN: 1. Right hand paresthesias, resolved. Overall, I suspect the patient had some acute carpal tunnel syndrome/median neuropathy due to compression from her sleeping position with simultaneous significant hyperglycemia, which may have put her at higher risk for compression neuropathies. I am reassured by her clinical history and negative diffusion-weighted images on MRI brain in terms of an acute neurovascular syndrome. I counseled her as such. Going forward, I do recommend indefinite anti-platelet therapy, tight blood glucose control, referral to a group home counselor for further management of diabetes and general health measures for wellness. We discussed at length. I also discussed optimal ergonomics in terms of her work to avoid development of more chronic carpal tunnel syndrome. She understood and agrees to the recommendations. Seventy total minutes floor time reviewing records, imaging, counseling the patient and coordination of care. We will sign off and follow up as needed. She can follow up with Neurology as outpatient for any questions or concerns. Thank you for the consult. /[id number]/MODL MTDD
--- NOTE | 2018-04-24 08:29 | GDS ---
[f rep st] DISCHARGE SUMMARY DISCHARGE DIAGNOSES: 1. Hyperglycemia, in the setting of poorly-controlled type 2 diabetes. 2. Right hand numbness. 3. Hypertension. 4. Hyperlipidemia. 5. Mild mitral regurgitation. BUSINESS DEVELOPER: Dr. Alex Aranda of Neurology. HISTORY OF DETAILS: Please see the history and physical dated April 20, 2018. In brief, the patient i s a 58-year-old female with a history of diabetes, who was recently started on insulin, who presented to the emergency department with poorly-controlled blood sugars and right hand numbness. She was ad mitted for possible further management. HOSPITAL COURSE: The patient was admitted to the med/surg unit. Given her history of TIA and right hand numbness, a TIA workup was pursued. She underwent a brain MRI/MRA which was negative for acute stroke and showed a normal angiogram of the head and neck. Echocardiogram showed an ejection fractio n of 65% to 70%, with no wall motion abnormality. She had mild mitral regurgitation. There was no o bvious cardiac source for embolism. Regarding her hyperglycemia, her Lantus dose was increased to 28 units at bedtime, and she was contin ued on Humalog sliding scale. Her blood sugars improved to the 100s. She was provided some brief di abetes education, but certainly needs further outpatient diabetes education as she was really quite u nclear about how to manage her insulin. Regarding her right hand numbness, it seems less likely that this was a TIA and may have been a perip heral nerve compression. She was evaluated by Neurology who was suspicious for an acute carpal tunne l or median nerve neuropathy due to compression from her sleeping position. Due the less likely poss ibility for a TIA, her aspirin dose was increased to 325 mg daily, and she should continue antiplatel et therapy indefinitely, along with a statin. Her atorvastatin dose is increased to 40 mg daily. DISPOSITION: The patient is discharged home in stable condition. FOLLOWUP: 1. Dr. Rolando Allen, Primary Care. 2. Dr. Pancho Mora, Endocrinology. DISCHARGE MEDICATIONS: Please see VIRxSYS completed outpatient medication list. New medications on discharge include aspirin 325 mg p.o. daily, #30, no refills; atorvastatin 40 mg p.o. daily, #30, no refills. Changed medications: Her insulin Lantus is increased to 28 units subcutaneous at bedtime. She is provided a sliding scale for her Humalog as follows: Blood sugar 100 to 150 give 2 units, 1 51 to 200 give 4 units, 201-250 give 6 units, 251 to 300 give 8 units, 301 to 350 give 10 units, and greater than 350 give 12 units, and she should call her primary care physician. She will continue al l outpatient medications as previously prescribed. Metformin is discontinued due to intolerance. Antoinette zuniga can follow up with her PCP regarding whether or not she will resume this. /[id number]/MODL
== END 2018-04-21 14:51 | disposition home or self-care (01) ==
LOC: F3E 13:40
PROVIDERS: ADMIT Hospitalist; ATTEND Hospitalist
DX: E11.65 Type 2 diabetes mellitus with hyperglycemia (principal); R20.2 Paresthesia of skin; E86.9 Volume depletion, unspecified; I10 Essential (primary) hypertension; E78.5 Hyperlipidemia, unspecified; I34.0 Nonrheumatic mitral (valve) insufficiency; F41.9 Anxiety disorder, unspecified; Z79.4 Long term (current) use of insulin; Z79.82 Long term (current) use of aspirin; Z79.02 Long term (current) use of antithrombotics/antiplatelets; Z86.73 Personal history of transient ischemic attack (TIA), and cerebral infarction without residual deficits; Z87.891 Personal history of nicotine dependence; Z90.710 Acquired absence of both cervix and uterus; Z88.2 Allergy status to sulfonamides
CPT/HCPCS: 70544; 70548; 70551; 93306; 96360; 99285; G0378; 82435-PO; 82565-PO; 82947-PO; 84132-PO; 84295-PO; 84520-PO; 85014-PO; A9585; J1815; J2060

== ENCOUNTER 2019-03-26 11:26 | Emergency (ER) | payer OTHER | END 2019-03-26 14:46 | disposition home or self-care (01) ==